=== PATIENT | male | born 1965 | race Caucasian/White ===

== ENCOUNTER 2016-10-09 08:30 | Day surgery (SDC) | payer OTHER ==
[~2016-10-09] VITALS: Ht 174 cm; Wt 80.8 kg
[2016-10-09 09:19] VITALS: Ht 174 cm; Wt 80.8 kg
[2016-10-09] MEDS ORDERED: GLIP5TAB13 PO (09:23)
[2016-10-09] MEDS ORDERED: LISI1TAB6 PO (09:23)
[2016-10-09] MEDS ORDERED: ATOR40TA68 PO (09:23)
[2016-10-09] MEDS ORDERED: LIDOCAINE 4% SOLUTION 50 ML BTL ONE (09:34)
[2016-10-09] MEDS ORDERED: MIDAZOLAM 1 MG/ML 2 ML INJ ONE ×3 (11:21)
[2016-10-09] MEDS ORDERED: FENTAnyl 50 MCG/ML VIAL ONE (11:21)
--- NOTE | 2016-10-09 12:20 | GILP ---
DATE OF PROCEDURE: 10/09/2016 PROCEDURE PERFORMED: Colonoscopy, biopsy and polypectomy. PREOPERATIVE DIAGNOSIS: Patient presenting with a history of occult gastrointestinal bleeding, rule out colorectal neoplasm, arteriovenous malformation, diverticulosis. POSTOPERATIVE DIAGNOSES: 1. Multiple polyps as described below. 2. Also moderate degree of diverticulosis. DESCRIPTION OF PROCEDURE: After informed written consent was obtained. Patient was given Versed and fentanyl as intravenous anesthesia. When the patient became somnolent, Olympus video colonoscope was introduced into the rectum and advanced all the way to the cecum. Multiple polyps were noted as described below. In the distal ascending colon, there were 2 polyps noted, each one measuring about 3-5 mm in diameter. Two polyps were in close proximity to each other. Both of them were removed with the cold biopsy forceps. Then proximal transverse colon showed evidence of a 3 mm polyp and also about 8 mm polyp on a stalk was noted. The 3 mm polyp was removed with the cold biopsy forceps and the 5 mm polyp on a stalk. Polypectomy was performed. Polyp was sent for histopathology. Again distal transverse colon was examined, which showed evidence of a 7-8 mm polyp on a stalk. Polypectomy was performed. Polyp was sent for histopathology. Diverticulosis noted all along the colon. At 30 cm from the anus, there was evidence of a large polyp at least measuring 2 cm in the longest diameter and it has got a wide stalk and a long stalk. In multiple pieces, this polyp was removed and a wide stalk was still left behind with some tissue attached to that. However, multiple biopsies were obtained also and all the pieces after the polypectomy were retrieved and sent for histopathology. The scope at this time was withdrawn and the procedure was terminated. PLAN: Recommend wait for the pathology report. Dictated By: Bryant Cam MD /neftaly/chago /Document#: [id number] ; Dr. Mckeon in [place]
== END 2016-10-09 15:02 | disposition home or self-care (01) ==
LOC: GIL 08:30
PROVIDERS: ATTEND Internal Medicine Gastroenterology
DX: K92.1 Melena (principal); D12.2 Benign neoplasm of ascending colon; D12.3 Benign neoplasm of transverse colon; K29.80 Duodenitis without bleeding; K29.50 Unspecified chronic gastritis without bleeding; I10 Essential (primary) hypertension
CPT/HCPCS: 43239; 45380; 82962; 88305; 88312; 88313; J2250; J3010

== ENCOUNTER 2016-11-21 11:44 | Observation (INO) | payer OTHER ==
[2016-11-21] VITALS (28 sets, daily range): BP systolic 99–151; BP diastolic 65–85; PULSE 80–104; RESP 12–25; Ht 175.3 cm; Wt 79.0 kg
[~2016-11-21] VITALS: Ht 175.3 cm; Wt 79.0 kg
[~2016-11-21 11:44] MED LIST: AMPICILLIN/SULB 3 GM/NS (PMX) 100 ML IVPB SCH; ATOR40TA68 PO; GLIP5TAB13 PO; LISI1TAB6 PO; SOD CHLORIDE 0.9% 1,000 ML IV SCH
[2016-11-21] MEDS ORDERED: GLIP-95 PO (12:23)
[2016-11-21] MEDS ORDERED: METF1000 PO (12:24)
[2016-11-21] MEDS ORDERED: OMEP40CA6 PO (12:24)
[2016-11-21] MEDS ORDERED: OXYCODONE/ACETAMINOPHEN (5/325) TAB PO PRN ×2 (13:00)
[2016-11-21] MEDS ORDERED: METOCLOPRAMIDE 10 MG INJ IV PRN (13:00)
[2016-11-21] MEDS ORDERED: HYDROmorphONE (0.2 MG/ML) 10ML SYG IV PRN ×3 (13:00)
[2016-11-21] MEDS ORDERED: KETOROLAC 30 MG INJ IV PRN (13:00)
[2016-11-21] MEDS ORDERED: EPHEDrine SULFATE 50 MG/5 ML SYG IV PRN (13:00)
[2016-11-21] MEDS ORDERED: MEPERIDINE 25 MG INJ IV PRN (13:00)
[2016-11-21] MEDS ORDERED: LABETALOL HCL 20MG INJ IV PRN (13:00)
[2016-11-21] MEDS ORDERED: DIPHENHYDRAMINE 50 MG INJ IV PRN (13:00)
[2016-11-21] MEDS ORDERED: ONDANSETRON 4 MG INJ IV PRN ×2 (13:00→19:07)
[2016-11-21] MEDS ORDERED: hydrALAzine 20 MG INJ IV PRN (13:00)
[2016-11-21] MEDS ORDERED: FENTAnyl 50 MCG/ML VIAL IV PRN ×3 (13:00)
[2016-11-21] MEDS ORDERED: morphine SULFATE/PF (10 MG/10 ML) INJ ONE (13:11)
[2016-11-21] MEDS ORDERED: ROCURONIUM 50 MG INJ ONE ×2 (13:18)
[2016-11-21] MEDS ORDERED: PROPOFOL 20 ML ONE (13:18)
[2016-11-21] MEDS ORDERED: LIDOCAINE 2% (SDV) 5 ML INJ ONE (13:18)
[2016-11-21] MEDS ORDERED: MIDAZOLAM 1 MG/ML 2 ML INJ ONE (13:44)
[2016-11-21] MEDS ORDERED: FENTAnyl 50 MCG/ML VIAL ONE (13:44)
[2016-11-21] MEDS ORDERED: PHENYLephrine (100 MCG/ML) 5ML SYG ONE (14:25)
[2016-11-21] MEDS ORDERED: NEOSTIGMINE 3 MG/3 ML SYRINGE ONE (15:07)
[2016-11-21] MEDS ORDERED: GLYCOPYRROLATE 0.4 MG INJ ONE (15:08)
--- NOTE | 2016-11-21 15:16 | OPR ---
Date/Time of Note Date/Time of Note DATE: 11/21/16 TIME: 15:11 Operative Report Procedure Date: Nov 21, 2016 Preoperative Diagnosis cancer of colon at 30 mcm Postoperative Diagnosis wide stalk poss previous polypectomy site at 28 cm multiple small, polyps in colon bx done at 28cm and 10 cm from anus tattooin done at 28 cm Operation/Procedure Performed colonoscopy bx tattooing Surgeon see signature line Recreation Assistant none Anesthesia Type: general Anesthesiologist: STEVE HAMMOND Estimated Blood Loss: none Transfusion none Specimen stalk at 28 cm and rectal polyp Grafts/Implants none Tubes/Drains none Complications none Pt Condition Post Procedure: stable Indications cancerous polyp at 30 cm Procedure Description see dictation colonoscopy bx and tattooing done GIUSEPPE SINGH MD Nov 21, 2016 15:16
--- NOTE | 2016-11-21 16:09 | ECORPT ---
DATE OF SERVICE: 11/21/2016 PREOPERATIVE DIAGNOSIS: Left colon resection. However, the procedure was canceled due to findings on colonoscopy. INDICATIONS FOR PROCEDURE: The patient had previously undergone a colonoscopy approximately 2 month s prior. At that time, multiple biopsies were taken but none of the biopsy sites were tattooed. On e of the sites on final pathology by report at approximately 30 cm revealed a well-differentiated ad enocarcinoma extending to the stump. Based on this, the patient was referred for surgical consultat [facility] and told of the need of repeat colon resection and probable left colectomy. Arrangements were m sandrine with attending crop specialist, Dr. Cam who had performed the previous colonoscopy to be p resent to perform colonoscopy prior to the surgery to accurately identify the site of the previous b iopsy which revealed cancer. The patient was brought to the operating theater and placed under anes thesia. Dr. Cam performed the colonoscopy and there was difficulty identifying any site where ab normal or suspicious lesion remained. Specifically, we meticulously looked between 10 and 50 cm. I n one area which was thought as a possible site was identified and it was biopsied multiple times. Six biopsies were taken and all 6 were then evaluated with intraoperative frozen section performed b y attending pathologist, Dr. Toscano and after very meticulous examination of the frozen section, t here was no evidence of adenocarcinoma or adenoma, only normal colonic mucosa was identified. At th is point, Dr. Cam and Dr. Carroll decided that it would be best to tattoo this area but not proceed with colon resection as no definite evidence of residual malignancy was identified. The area was t attooed and the patient was then woken up and the procedure was thus concluded. Dictated By: JOHNATHAN CARROLL MD TL/LUIS Conf#: [id number] DID#: [id number]
[2016-11-21] MEDS: INSULIN ASPART [NOVOLOG] 3 ML PEN SC SCH ×2 (17:55→21:00)
[2016-11-21] MEDS: metFORMIN 500 MG TAB PO SCH (17:55)
[2016-11-21 18:47] LABS: ADD UMIC YES; UR ASCORBIC ACID NEGATIVE (NEGATIVE); UR BILIRUBIN (Dip) NEGATIVE (NEGATIVE); UR BLOOD (Dip) NEGATIVE (NEGATIVE); UR CLARITY CLEAR (CLEAR); UR COLOR YELLOW (YELLOW); UR GLUCOSE (Dip) NEGATIVE (NEGATIVE); UR KETONES (Dip) 1+ mg/dL (NEGATIVE); UR LEUKOCYTE ESTERASE (Dip) NEGATIVE Leu/ul (NEGATIVE); UR NITRITE (Dip) NEGATIVE (NEGATIVE); UR RBC 0 /HPF (0-5); UR TOTAL PROTEIN (Dip) 1+ mg/dl (NEGATIVE); UR UROBILINOGEN (Dip) NEGATIVE (NEGATIVE)
[2016-11-21] MEDS ORDERED: GLUCOSE GEL 15 GRAM TUBE BUCCAL PRN (19:30)
[2016-11-21] MEDS ORDERED: GLUCOSE GEL 15 GRAM TUBE PO PRN ×2 (19:30)
[2016-11-21] MEDS ORDERED: DEXTROSE 50% 50 ML SYRINGE IV PRN ×2 (19:30)
[2016-11-21] MEDS ORDERED: GLUCAGON 1 MG INJ IM PRN (19:30)
[2016-11-22] MEDS ORDERED: ACCU-CHEK XX SCH (02:00)
[2016-11-22] MEDS: DIPHENHYDRAMINE 50 MG INJ IV PRN ×2 (03:42→10:11)
--- NOTE | 2016-11-22 04:34 | HP ---
DATE OF ADMISSION: 11/21/2016 CHIEF COMPLAINT AND HISTORY OF PRESENT ILLNESS: The patient is a 50-year-old gentleman with a histo ry of diabetes, hypertension, who underwent screening colonoscopy back in September [address] Cam and was noted to have multiple polyps. All polyps were sent for histopathology. At 30 cm from the anus, there was evidence of a large polyp at least measuring 2 cm in the longest diameter and had a white stock and multiple pieces of polyp were removed and white stock was still left behind with alina e tissue attached to that. 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 The patient was referred to Dr. Busch and was brought into the hospital today. The patient did undergo epidural analgesia and Dr. Cam performed colonoscopy to provide location of the previous polypectomy sinc e it was not detected. Dr. Cam performed preoperative colonoscopy and there was difficulty in id entifying any site where abnormal or suspicious lesions remained. Specifically, the colon was looke d at meticulously between 10 and 50 cm. In one area, which was thought as a possible site, was iden tified and was biopsied multiple times. Six biopsies were taken and all these were with intra operative frozen section performed by Dr. Toscano and, after very meticulous examination of frozen section, there was no evidence of adenocarcinoma or adenoma, only normal colonic mucosa was identifi ed. At this point, Dr. Busch and Dr. Cam decided that it would be best to tattoo this area, but not proceed with colon resection, as no definitive evidence of residual malignancy was identified. The patient, however, had epidural anesthesia, therefore, had weakness in both lower extremities and had urinary retention; therefore a Mckeon catheter was placed in. The patient is being admitted for further evaluation and management. The patient denied any chest pain. The patient did have nausea and vomiting after admission for which the patient was started on Zofran. The patient denied any s hortness of breath. No reported fever or chills. No reported focal weakness prior to surgery. The patient did not have any abdominal pain. The rest of review of systems unremarkable. PAST SURGICAL HISTORY: None. ALLERGIES: NONE. SOCIAL HISTORY: No smoking, no alcohol. FAMILY HISTORY: Noncontributory. PHYSICAL EXAMINATION: GENERAL: The patient is conscious, awake, alert. VITAL SIGNS: Temperature 98.1, pulse 94, respirations 16, blood pressure 135/73, O2 saturation 100% on 2 liters nasal cannula. HENT: Conjunctivae and lids normal. Oropharynx clear. NECK: Supple, no mass, no thyromegaly. CHEST: Clear to auscultation. CARDIOVASCULAR: S1, S2 normal. No murmur. ABDOMEN: Soft, nondistended, nontender. EXTREMITIES: No leg edema. Pedal pulses palpable. NEUROLOGIC: The patient is awake, alert with paralyzed both lower extremities due to effect of anes thesia. LABS: Glucose was 154. The patient will have followup labs tomorrow. IMPRESSION: 1. Colon polyp with pathology positive for adenocarcinoma, however, the patient underwent polypecto my and no further evidence of colon cancer could be found in the repeat colonoscopy today. 2. Diabetes mellitus. 3. Hypertension. PLAN: The patient admitted on medical floor. The patient was started on diet and will be put on sl iding scale insulin and an antihypertensive medication. Will use SCD for DVT prophylaxis. Will con tinue Zofran for nausea, vomiting, and will continue proton pump inhibitor, as a recent EGD revealed markedly chronic gastritis. The patient also had H. pylori positive, but I am not sure whether the patient completed treatment by Dr. Cam. The patient preoperatively was on only proton pump inhi bitor. Further recommendations will depend on the patient's hospital course. Dictated By: SANDRA CASTILLO/LUIS Conf#: [id number] DID#: [id number]
[2016-11-22 05:18] LABS: BASOPHILS % 0.3 % (0.0-2.0); HEMATOCRIT 37.5 % (42.0-52.0); HEMOGLOBIN 12.2 g/dl (14.0-18.0); LYMPHOCYTES # 1.3 10^3/ul (0.8-2.9); LYMPHOCYTES % 11.2 % (15.0-51.0); MEAN CORPUSCULAR HEMOGLOBIN 27.4 pg (29.0-33.0); MEAN CORPUSCULAR HGB CONC 32.5 g/dl (32.0-37.0); MEAN CORPUSCULAR VOLUME 84.1 fl (82.0-101.0); MEAN PLATELET VOLUME 10.1 fl (7.4-10.4); MONOCYTE # 0.8 10^3/ul (0.3-0.9); MONOCYTES % 7.1 % (0.0-11.0); NEUTROPHIL # 9.3 10^3/ul (1.6-7.5); NEUTROPHILS % 81.1 % (39.0-77.0); PLATELET COUNT 254 10^3/UL (140-415); RED BLOOD COUNT 4.46 10^6/ul (4.70-6.10); RED CELL DISTRIBUTION WIDTH 12.2 % (11.5-14.5); WHITE BLOOD COUNT 11.5 10^3/ul (4.8-10.8)
[2016-11-22 05:42] LABS: CREATININE 0.63 mg/dl (0.61-1.24); POTASSIUM 3.4 mmol/L (3.5-5.1)
[2016-11-22] MEDS ORDERED: PANTOPRAZOLE (EC) 40 MG TAB PO SCH (06:00)
--- NOTE | 2016-11-22 06:33 | GILP ---
DATE OF PROCEDURE: PROCEDURE: Colonoscopy. PREOPERATIVE DIAGNOSIS: Patient was brought to the hospital for left colon resection because colono scopy showed evidence of a polyp with an undifferentiated adenocarcinoma at 30 cm from the anus and at this time for the location of the polyp with cancer, colonoscopy has been requested preoperativel y. Hence, the procedure is performed. POSTOPERATIVE DIAGNOSES: A wide stalk was noted at 28 cm from the anus and multiple small polyps we re noted. This polyp was biopsied. Small polyp in the rectum was also biopsied. Multiple small other polyps were not removed or biopsi ed at this time. DESCRIPTION OF PROCEDURE: After the informed written consent was obtained, the patient was intubate d by anesthesiologist Dr. Snyder. While the patient was in left lateral position, Olympus video colon oscope was introduced into the rectum and advanced all the way to the cecum. In the rectum at about 10 cm from the anus, there is evidence of a 4 mm polyp was noted. This was removed with a cold bio psy forceps and about 28 cm from the anus, there seems to be evidence of a wide stalk was noted. Th is appears to be the area where the previous colon polyp was removed and this appears to be a stalk. Erythema noted at the top of the stalk. Multiple small polyps were noted in the proximal descendi ng colon, transverse colon and the cecum. At this time intentionally the polyps were not biopsied b ecause the main problem at this time to see if there is evidence of cancer at 30 cm from the anus. Scope at this time was withdrawn. The wide stalk which was felt to be the stalk after the polypecto my site that was performed a few weeks ago. Multiple biopsies were obtained. Dr. Busch is observin g this procedure and with joint communication we decided to do biopsy and do a frozen section and fr lata section was sent to Dr. Bucky Toscano and he reported that wide stalk is a benign colonic muc kwaku. No cancer noted. Because of this, Dr. Busch decided not to proceed with colon resection and al so tattooing of this area next to the polyp was performed by using the SPOT just in case the patient needs a future resection. At this time, scope was withdrawn and the procedure was terminated. PLAN: Recommend wait for the permanent section path report on this wide stalk. Dictated By: GIUSEPPE VALVERDE/NTS Conf#: [id number] DID#: [id number] CC: JOHNATHAN BUSCH MD;*End*
[2016-11-22] MEDS: INSULIN ASPART [NOVOLOG] 3 ML PEN SC SCH ×2 (07:50→11:40)
[2016-11-22 08:38] VITALS: BP 116/76; RESP 18
[2016-11-22] MEDS: metFORMIN 500 MG TAB PO SCH (08:43)
[2016-11-22] MEDS ORDERED: LISINOPRIL 20 MG TAB PO SCH (09:00)
[2016-11-22] MEDS ORDERED: HYDROCHLOROTHIAZIDE 12.5 MG CAP PO SCH (09:00)
[2016-11-22 15:19] VITALS: BP 123/84; RESP 18
--- NOTE | 2016-11-22 15:49 | DS ---
Date/Time of Note Date/Time of Note DATE: 11/22/16 TIME: 15:48 Discharge Summary Admission/Discharge Info Admit Date/Time Nov 21, 2016 at 11:44 Discharge Date/Time Patient Condition: Stable Hx of Present Illness The patient is a 50-year-old gentleman with a history of diabetes, hypertension , who underwent screening colonoscopy back in September [address] Cam and was noted to have multiple polyps. All polyps were sent for histopathology. At 30 cm from the anus, there was evidence of a large polyp at least measuring 2 cm in the longest diameter and had a white stock and multiple pieces of polyp were removed and white stock was still left behind with some tissue attached to that. Biopsies subsequently came back showing superficially invasive well- differentiated adenocarcinoma arising in tubulovillous adenoma; this was a polyp at 30 cm. The patient was referred to Dr. Busch and was brought into the hospital today. The patient did undergo epidural analgesia and Dr. Cam performed colonoscopy to provide location of the previous polypectomy since it was not detected. Dr. Cam performed preoperative colonoscopy and there was difficulty in identifying any site where abnormal or suspicious lesions remained. Specifically, the colon was looked at meticulously between 10 and 50 cm. In one area, which was thought as a possible site, was identified and was biopsied multiple times. Six biopsies were taken and all these were with intraoperative frozen section performed by Dr. Toscano and, after very meticulous examination of frozen section, there was no evidence of adenocarcinoma or adenoma, only normal colonic mucosa was identified. At this point, Dr. Busch and Dr. Cam decided that it would be best to tattoo this area, but not proceed with colon resection, as no definitive evidence of residual malignancy was identified. The patient, however, had epidural anesthesia, therefore, had weakness in both lower extremities and had urinary retention; therefore a Mckeon catheter was placed in. The patient is being admitted for further evaluation and management. The patient denied any chest pain. The patient did have nausea and vomiting after admission for which the patient was started on Zofran. The patient denied any shortness of breath. No reported fever or chills. No reported focal weakness prior to surgery. The patient did not have any abdominal pain. The rest of review of systems unremarkable. Hospital Course 1. Colon polyp with pathology positive for adenocarcinoma, however, the patient underwent polypectomy and no further evidence of colon cancer could be found in the repeat colonoscopy today. 2. Diabetes mellitus. 3. Hypertension. Home Meds Reported Medications Metformin Hcl* (Metformin Hcl*) 1,000 Mg Tablet, 1000 MG PO WITH BREAKFAST DINNE , #30 TAB 11/21/16 Omeprazole* (Omeprazole*) 40 Mg Capsule.dr, 40 MG PO DAILY, #30 CAP 11/21/16 Glipizide* (Glipizide*) 10 Mg Tablet, 10 MG PO BID, TAB 11/21/16 Lisinopril/Hydrochlorothiazide (Lisinopril-Hctz 20-12.5 mg Tab) 1 Each Tablet, 1 EACH PO DAILY, TAB 10/09/16 Discontinued Reported Medications Glipizide* (Glipizide*) 5 Mg Tablet, 5 MG PO DAILY, TAB 10/09/16 Atorvastatin* (Atorvastatin*) 40 Mg Tablet, 40 MG PO DAILY, #30 TAB 10/09/16 Follow-up Plan f/up with Dr Busch in 2 weeks, f/up with Dr Cam for biopsy results. Primary Care Provider [facility] Pending Labs Laboratory Tests Test 11/21/16 16:00 11/21/16 20:41 11/22/16 04:22 11/22/16 08:20 Urine Color YELLOW (YELLOW) Urine Clarity CLEAR (CLEAR) Urine pH 7.0 (5.0-9.0) Urine Specific [place] 1.010 (1.003-1.030) Urine Ketones 1+mg/dL (NEGATIVE) Urine Nitrite NEGATIVEmg/dL (NEGATIVE) Urine Bilirubin NEGATIVEmg/dL (NEGATIVE) Urine Urobilinogen NEGATIVEmg/dL (NEGATIVE) Urine Leukocyte Esterase NEGATIVELeu/ul (NEGATIVE) Urine Microscopic RBC 0/HPF (0-5) Urine Microscopic WBC 1/HPF (0-5) Urine Hemoglobin NEGATIVEmg/dL (NEGATIVE) Urine Glucose NEGATIVEmg/dL (NEGATIVE) Urine Total Protein 1+mg/dl (NEGATIVE) Bedside Glucose 154mg/dL (70-220) 110mg/dL (70-220) White Blood Count 11.510^3/ul (4.8-10.8) Red Blood Count 4.4610^6/ul (4.70-6.10) Hemoglobin 12.2g/dl (14.0-18.0) Hematocrit 37.5% (42.0-52.0) Mean Corpuscular Volume 84.1fl (82.0-101.0) Mean Corpuscular Hemoglobin 27.4pg (29.0-33.0) Mean Corpuscular Hemoglobin Concent 32.5g/dl (32.0-37.0) Red Cell Distribution Width 12.2% (11.5-14.5) Platelet Count 39591^3/UL (140-415) Mean Platelet Volume 10.1fl (7.4-10.4) Neutrophils % 81.1% (39.0-77.0) Lymphocytes % 11.2% (15.0-51.0) Monocytes % 7.1% (0.0-11.0) Eosinophils % 0.0% (0.0-7.0) Basophils % 0.3% (0.0-2.0) Nucleated Red Blood Cells % 0.0/100WBC (0.0-0.0) Neutrophils # 9.310^3/ul (1.6-7.5) Lymphocytes # 1.310^3/ul (0.8-2.9) Monocytes # 0.810^3/ul (0.3-0.9) Eosinophils # 0.010^3/ul (0.0-0.5) Basophils # 0.010^3/ul (0.0-0.1) Nucleated Red Blood Cells # 0.010^3/ul (0.0-0.0) Sodium Level 136mmol/L (135-144) Potassium Level 3.4mmol/L (3.5-5.1) Chloride Level 98mmol/L (97-110) Carbon Dioxide Level 27mmol/L (21-31) Anion Gap 14 (8-16) Blood Urea Nitrogen 14mg/dl (7-20) Creatinine 0.63mg/dl (0.61-1.24) Glucose Level 151mg/dl (70-220) Calcium Level 8.0mg/dl (8.4-10.2) Test 11/22/16 12:30 Bedside Glucose 129mg/dL (70-220) Microbiology Date/Time Source Procedure Growth Status 11/21/16 16:00 Mckeon Catheter Urine Culture - Preliminary NO GROWTH AFTER 24 HOURS Resulted FELI DOMINGUEZ Nov 22, 2016 15:49
[2016-11-22] MEDS ORDERED: POTASSIUM CHLORIDE 20 MEQ POWDER FOR ORAL SOLN PO ONE (16:00)
[2016-11-22 16:20] LABS: ADD UMIC YES; UR ASCORBIC ACID NEGATIVE (NEGATIVE); UR BILIRUBIN (Dip) NEGATIVE (NEGATIVE); UR BLOOD (Dip) 2+ mg/dL (NEGATIVE); UR CLARITY CLEAR (CLEAR); UR COLOR STRAW (YELLOW); UR GLUCOSE (Dip) NEGATIVE (NEGATIVE); UR KETONES (Dip) TRACE mg/dL (NEGATIVE); UR LEUKOCYTE ESTERASE (Dip) NEGATIVE Leu/ul (NEGATIVE); UR NITRITE (Dip) NEGATIVE (NEGATIVE); UR RBC 1 /HPF (0-5); UR SPECIFIC GRAVITY (Dip) 1.003 (1.003-1.030); UR TOTAL PROTEIN (Dip) NEGATIVE (NEGATIVE); UR UROBILINOGEN (Dip) NEGATIVE (NEGATIVE)
== END 2016-11-22 16:25 | disposition home or self-care (01) ==
LOC: INTOOBSV 11:44 → REC 11:44 → MS1 17:30
PROVIDERS: ADMIT Surgery Surgical Oncology; ATTEND Surgery Surgical Oncology
DX: D12.0 Benign neoplasm of cecum (principal); D12.4 Benign neoplasm of descending colon; D12.3 Benign neoplasm of transverse colon; I10 Essential (primary) hypertension; E11.9 Type 2 diabetes mellitus without complications
CPT/HCPCS: 45380; 80048; 81001; 82962; 85025; 87086; 88307; 88331; 99217; G0378; J1200; J2250; J2274; J3010; J7030; J2370; J2710

== ENCOUNTER 2017-01-22 06:20 | Day surgery (SDC) | payer OTHER ==
[2017-01-21 10:40] VITALS: BMI 25.2
[2017-01-22] VITALS (8 sets, daily range): BP systolic 119–156; BP diastolic 72–91; PULSE 76–89; RESP 11–18; Ht 174 cm; Wt 81.7 kg
[~2017-01-22] VITALS: Ht 174 cm; Wt 81.7 kg
[~2017-01-22 06:20] MED LIST changes: -AMPICILLIN/SULB 3 GM/NS (PMX) 100 ML IVPB SCH; -ATOR40TA68 PO; +GLIP-95 PO; -GLIP5TAB13 PO; +METF1000 PO; +OMEP40CA6 PO; -SOD CHLORIDE 0.9% 1,000 ML IV SCH
[2017-01-22] MEDS ORDERED: EPHEDrine SULFATE 50 MG/5 ML SYG IV PRN (06:30)
[2017-01-22] MEDS ORDERED: OXYCODONE/ACETAMINOPHEN (5/325) TAB PO PRN ×2 (06:30)
[2017-01-22] MEDS ORDERED: MEPERIDINE 25 MG INJ IV PRN (06:30)
[2017-01-22] MEDS ORDERED: FENTAnyl 50 MCG/ML VIAL IV PRN ×2 (06:30)
[2017-01-22] MEDS ORDERED: hydrALAzine 20 MG INJ IV PRN (06:30)
[2017-01-22] MEDS ORDERED: MIDAZOLAM 1 MG/ML 2 ML INJ IV PRN (06:30)
[2017-01-22] MEDS ORDERED: DIPHENHYDRAMINE 50 MG INJ IV PRN (06:30)
[2017-01-22] MEDS ORDERED: morphine (1 MG/ML) 10ML SYRINGE IV PRN ×3 (06:30)
[2017-01-22] MEDS ORDERED: HYDROmorphONE (0.2 MG/ML) 10ML SYG IV PRN ×3 (06:30)
[2017-01-22] MEDS ORDERED: ATROPINE 1 MG/10 ML SYRINGE IV PRN (06:30)
[2017-01-22] MEDS ORDERED: LABETALOL HCL 20MG INJ IV PRN (06:30)
[2017-01-22] MEDS ORDERED: ONDANSETRON 4 MG INJ IV PRN (06:30)
[2017-01-22] MEDS ORDERED: MITOMYCIN 5 MG INJ LEFT EYE ONE (06:30)
[2017-01-22] MEDS ORDERED: NEOSTIGMINE 3 MG/3 ML SYRINGE ONE (06:33)
[2017-01-22] MEDS ORDERED: MIDAZOLAM 1 MG/ML 2 ML INJ ONE (06:33)
[2017-01-22] MEDS ORDERED: GLYCOPYRROLATE 0.4 MG INJ ONE (06:33)
[2017-01-22] MEDS ORDERED: ROCURONIUM 50 MG INJ ONE (06:33)
[2017-01-22] MEDS ORDERED: FENTAnyl 50 MCG/ML VIAL ONE (06:33)
[2017-01-22] MEDS ORDERED: PROPOFOL 20 ML ONE (06:33)
[2017-01-22] MEDS ORDERED: LIDOCAINE 2% (SDV) 5 ML INJ ONE (06:33)
[2017-01-22] MEDS ORDERED: ONDANSETRON 4 MG INJ ONE (06:34)
[2017-01-22] MEDS ORDERED: PHENYLephrine 10% 5 ML OPH ONE (06:49)
[2017-01-22] MEDS ORDERED: TOBRAMYCIN/DEXAMETH 3.5 GM OPH OINT ONE (06:49)
[2017-01-22] MEDS ORDERED: TETRACAINE 0.5% 4 ML OPH ONE (06:49)
[2017-01-22] MEDS ORDERED: LIDOCAINE 1%/EPI 30 ML INJ ONE (06:49)
[2017-01-22] MEDS ORDERED: BALANCED SALT SOLN 15 ML OPH IRRIG ONE (07:00)
[2017-01-22] MEDS ORDERED: PHENYLephrine 10% 5 ML OPH LEFT EYE ONE (07:20)
[2017-01-22] MEDS ORDERED: TETRACAINE 0.5% 4 ML OPH LEFT EYE ONE (07:20)
--- NOTE | 2017-01-22 07:20 | HPN ---
Date/Time of Note Date/Time of Note DATE: 01/22/17 TIME: 07:19 Interval H&P Admission Note Pt. seen H&P reviewed: No system changes ABE JOHNSON MD Jan 22, 2017 07:20
[2017-01-22] MEDS ORDERED: LIDOCAINE 1.5%/EPI MPF (SDV) 30 ML VIAL INJ ONE (07:40)
--- NOTE | 2017-01-22 08:26 | SIPON ---
Date/Time of Note Date/Time of Note DATE: 01/22/17 TIME: 08:22 Operative Report Preoperative Diagnosis pterygium left eye Postoperative Diagnosis same Operation/Procedure Performed excision of pterygium Surgeon see signature line marketing assistant retail division none Anesthesia: MAC Estimated blood loss: none Transfusion Required none Specimen none Grafts/Implants none Complications none ABE JOHNSON MD Jan 22, 2017 08:26
--- NOTE | 2017-01-22 12:00 | OPR ---
DATE OF OPERATION: 01/22/2017 SURGEON: Maia Morel MD TAPE CONTROLLED MACHINE STITCHER: None. ANESTHESIOLOGIST: ____ PREOPERATIVE DIAGNOSIS: Pterygium, left eye. POSTOPERATIVE DIAGNOSIS: Pterygium, left eye. OPERATION: Excision of pterygium, left eye; application of mitomycin C; closure of defect with conj unctival advancement flaps. DESCRIPTION OF PROCEDURE: Following standard preparation and draping of the patient, a solid-blade lid speculum was placed for immobilization of the lids. A small amount of 2% Xylocaine with epineph rine was injected beneath the body of the pterygium so as to elevate it from the underlying sclerae. After adequate local anesthesia was obtained, Cameron scissors were simply used to make an incisi on along the edges of the pterygium, amputating the body approximately 1 cm posterior to the limbus. At the limbus, the major portion of the tissue was simply excised using sharp scissors. Using a r otating leonie bur, all of the scar tissue on the cornea was removed down to clear cornea. At this point, bleeding points were secured with the heat cautery. Mitomycin C (0.2 mg/ml) was now applied to the limbal regions for three minutes. After three minutes, the eye was copiously irrigated with balanced salt solution. A peritomy was now performed both superiorly and inferiorly and relaxing i ncisions made at approximately the 6 and 12 o'clock positions. The undermining conjunctiva was now pulled both superiorly and inferiorly so as to close the previously made defect from which the ptery gium had been removed. Sutures of interrupted 8-0 Vicryl were used and a bite of the underlying scl era was taken so as to ensure adequate maintenance of the flaps in a non-movable position. Betadine 5% solution was placed on the eye, along with TobraDex ointment. A light pressure dressing was applied, and the patient returned to the recovery room in satisfactory condition. Dictated By: MAIA FULTON/LUIS Conf#: [id number] DID#: [id number]
== END 2017-01-22 10:49 | disposition home or self-care (01) ==
LOC: SDS 06:20
PROVIDERS: ATTEND Ophthalmology
DX: H11.002 Unspecified pterygium of left eye (principal); I10 Essential (primary) hypertension; E11.9 Type 2 diabetes mellitus without complications; E78.5 Hyperlipidemia, unspecified
CPT/HCPCS: 65426; 82962; J1200; J2250; J2710; J3010; J9280; J2405

== ENCOUNTER 2017-04-30 13:04 | Day surgery (SDC) | END 2017-04-30 16:54 | disposition home or self-care (01) ==